=== PATIENT | female | born 1950 ===

== ENCOUNTER 2020-10-09 12:54 | Outpatient (CLI) | payer MEDICARE, OTHER, SELFPAY ==
--- NOTE | 2020-10-09 | DI.US_ITS ---
Exam(s) US EXTREMITY VENOUS BI EXAM: US EXTREMITY VENOUS BI CLINICAL HISTORY: RT LEG PAIN M79.661, LT LEG PAIN M79.662, CALF PAIN M79.669. TECHNIQUE: Ultrasound performed using standard protocol. COMPARISON: No exams were available for comparison FINDINGS: Duplex venous ultrasound was performed according to the usual protocol. The deep veins are freely com pressible throughout and there is normal flow augmentation with manual calf compression. 2D and Doppl er evaluation are unremarkable. IMPRESSION: No evidence of deep venous thrombosis of the right or left lower extremity. DATA REPOSITORY:
== END 2020-10-09 13:14 ==
PROVIDERS: Visit Provider Neurological Surgery
DX: M79.605 Pain in left leg (principal); M79.604 Pain in right leg; M79.669 Pain in unspecified lower leg
CPT/HCPCS: 93970